=== PATIENT | male | born 1955 | race Caucasian/White ===

== ENCOUNTER 2021-10-21 13:07 | Emergency (ER) | payer MEDICARE ==
[~2021-10-21] VITALS: Ht 182.9 cm; Wt 102.1 kg
--- NOTE | 2021-10-21 13:15 | NUR ---
GUILHERME FROM HOME W/ C/O WEAKNESS AND NAUSEA SINCE THIS MORNING. +VOMITING OXYACETYLENE TORCH OPERATOR. VERBALIZED BY PT THAT HE HAD COVID X6 DAYS, STILL FEELING SICK, BUT NEGATIVE COVID TEST YESTERDAY. PT A/O X4. TO ER BED 7.
--- NOTE | 2021-10-21 13:20 | NUR ---
DR BENAVIDES AT BEDSIDE FOR EVAL
[2021-10-21] MEDS ORDERED: ACETAMINOPHEN ES 500 MG TABLET ONE (13:23)
[2021-10-21] MEDS ORDERED: ONDANSETRON HCL/PF 4 MG/2 ML VIAL ONE (13:23)
--- NOTE | 2021-10-21 13:25 | NUR ---
IV LINE ESTABLISHED ON LAC #18, BLOOD DRAWN AND SENT TO LAB.
[2021-10-21] MEDS ORDERED: ONDANSETRON HCL/PF 4 MG/2 ML VIAL IVP ONE (13:30)
[2021-10-21] MEDS ORDERED: ACETAMINOPHEN ES 500 MG TABLET PO ONE (13:30)
--- NOTE | 2021-10-21 13:31 | NUR ---
PT VERBALIZED THAT HE DOES NOT HAVE PAIN AT THIS TIME AND FEELS A LITTLE BETTER AFTER VOMITING EPISODE. PT REFUSED TYLENOL MEDICATION.
[2021-10-21 13:36] LABS: BASOPHILS % (AUTO) 0.5 % (0.0-2.0); HEMATOCRIT 45 % (39-51); HEMOGLOBIN 14.9 g/dL (13.5-17.5); LYMPHOCYTES # (AUTO) 2.2 K/uL (0.8-4.8); LYMPHOCYTES % (AUTO) 26.9 % (20.0-44.0); MEAN CORPUSCULAR HGB CONC 33 g/dl (31.0-36.0); MEAN CORPUSCULAR VOLUME 86 fL (80-96); MONOCYTES # (AUTO) 0.4 K/uL (0.1-1.30); NEUTROPHILS # (AUTO) 5.4 K/uL (1.8-8.9); NEUTROPHILS % (AUTO) 65.6 % (43.0-81.0); PLATELET COUNT (AUTO) 288 K/uL (150-450); RED BLOOD CELL COUNT(AUTO) 5.23 MIL/uL (4.5-6.0); WHITE BLOOD COUNT (AUTO) 8.2 K/uL (4.3-11.0)
[2021-10-21 14:38] LABS: CALCIUM, SERUM 10.1 mg/dL (8.5-10.1); CARBON DIOXIDE 23 mmol/L (21-32); CHLORIDE 104 mmol/L (98-107); CREATININE 1.1 mg/dL (0.6-1.3); GLUCOSE 136 mg/dL (74-106); POTASSIUM 3.8 mmol/L (3.5-5.1); SODIUM SERUM 140 mmol/L (136-145); UREA NITROGEN, BLOOD 20 mg/dL (7-18)
[2021-10-21 15:17] LABS: ALBUMIN 4.6 g/dL (3.4-5.0); BILIRUBIN,DIRECT 0.2 mg/dL (0.0-0.2)
[2021-10-21 15:32] LABS: ALANINE AMINOTRANSFERASE 46 U/L (12-78); ALKALINE PHOSPHATASE 37 U/L (46-116); ASPARTATE AMINOTRANSFERASE 23 U/L (15-37); BILIRUBIN,TOTAL 0.8 mg/dL (0.2-1.0); TOTAL PROTEIN, SERUM 8.5 g/dL (6.4-8.2)
--- NOTE | 2021-10-21 15:39 | NUR ---
PT ABLE TO AMBULATE TO THE BATHROOM.
[2021-10-21] MEDS ORDERED: ACET-868 PO (16:12)
[2021-10-21] MEDS ORDERED: ONDA4TAB5 PO (16:12)
[2021-10-21 16:57] VITALS: BP 133/72
--- NOTE | 2021-10-21 16:57 | NUR ---
IV removed. Catheter intact and site benign. Pressure and 4x4 applied to site. No bleeding noted.Patient discharged to home in stable condition. Written and verbal after care instructions given. Patient verbalizes understanding of instruction.
[2021-10-21 20:18] LABS: LIPASE 170 U/L (73-393)
== END 2021-10-21 16:57 | disposition home or self-care (01) ==
LOC: ER 13:09
DX: R11.2 Nausea with vomiting, unspecified (principal); R53.1 Weakness; E78.00 Pure hypercholesterolemia, unspecified
CPT/HCPCS: 99284; 96374; 93005; 85025; 80048; 83690; 80076; 36415; 84484; J2405